=== PATIENT | male | born 1955 | race Caucasian/White ===

== ENCOUNTER 2019-10-26 08:00 | Outpatient (CLI) | payer OTHER ==
[2019-10-31] MEDS ORDERED: CELLULOSE,OXIDIZED 1 PKT EACH MC ONE (12:44)
== END 2019-10-26 23:59 | disposition home or self-care (01) ==
LOC: LAB 08:00
PROVIDERS: ATTEND Student in an Organized Health Care Education/Training Program
DX: Z01.812 Encounter for preprocedural laboratory examination (principal); Z20.828 Contact with and (suspected) exposure to other viral communicable diseases
CPT/HCPCS: 87426; C9803

== ENCOUNTER 2019-10-31 10:43 | Day surgery (SDC) | payer OTHER ==
--- NOTE | 2019-10-31 11:00 | NUR ---
Patient is in room 316 - 2 for day surgery, v/s:bp-158/67, p-58, r-16, t-98.2, L7lyq-74% on room air, kept NPO status. IV site on left AC 20g.
[2019-10-31] MEDS ORDERED: BACITRACIN 50000 UNITS/VIAL ONE (11:12)
[2019-10-31] MEDS ORDERED: BUPIVACAINE 0.5 % PF 150 MG/30 ML VIAL ONE (11:12)
[2019-10-31] MEDS ORDERED: ANESTHESIA TRAY IN PYXIS 1 EA TRAY MC ONE (11:12)
[2019-10-31] MEDS ORDERED: FENTANYL PF 250MCG/5ML AMPUL ONE (11:16)
[2019-10-31] MEDS ORDERED: MIDAZOLAM HCL 2 MG/2ML VIAL ONE (11:16)
[2019-10-31] MEDS ORDERED: CELLULOSE,OXIDIZED 1 EACH EACH MC ONE (12:38)
[2019-10-31] MEDS ORDERED: CELLULOSE,OXIDIZED 1 PKT EACH MC ONE (12:50)
[2019-10-31] MEDS ORDERED: HEMOSTATIC MATRIX 8 ML 1 EACH PAD MC ONE (13:37)
--- NOTE | 2019-10-31 14:30 | NUR ---
Patient came back from surgery, v/s:bp-159/94, p-107, r-20, t-98.6, O2sat 99% with oxygen at 2LPM in stable. will documented and attach all v/s in intervention.
[2019-10-31 14:45] VITALS: BP 168/93
[2019-10-31 15:00] VITALS: BP 172/98
[2019-10-31 15:30] VITALS: BP 151/94
--- NOTE | 2019-10-31 15:40 | NUR ---
Patient left facility accompanied by staff to the private car, pt denies pain or distress in stable condition. 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
== END 2019-10-31 18:00 | disposition home or self-care (01) ==
LOC: DS 10:43 → MED 10:47 → UNDOADMIN 10:47 → MED 11:58 → UNDODISIN 15:45 → DS 18:00
PROVIDERS: ATTEND Student in an Organized Health Care Education/Training Program
DX: G56.01 Carpal tunnel syndrome, right upper limb (principal)
CPT/HCPCS: 64721; A4565; A6402; J2250; J3010; J3490; G0378